=== PATIENT | male | born 1955 | race Hispanic/Latino ===

== ENCOUNTER 2017-08-21 16:19 | Emergency (ER) | payer SELFPAY ==
[2017-08-21] MEDS ORDERED: Bacitracin Zinc 1 Packet ONE (17:42)
== END 2017-08-21 18:12 | disposition home or self-care (01) ==
LOC: ERS 16:19
DX: S61.212A Laceration without foreign body of right middle finger without damage to nail, initial encounter (principal); W26.8XXA Contact with other sharp object(s), not elsewhere classified, initial encounter
CPT/HCPCS: 12002

== ENCOUNTER 2018-12-06 09:52 | Outpatient (CLI) | payer OTHER ==
--- NOTE | 2018-12-06 10:37 | RAD ---
XR Hand Rt 3 View STANDARD HISTORY: Injury to hand using the drill. COMPARISON: None. FINDINGS: There is an old healed fracture of the fifth metacarpal shaft. There is a new obliquely emil ented fracture extending through the fourth metacarpal shaft which is slightly foreshortened and minimally volarly angulated. No fracture of the third metacarpal. IMPRESSION: Acute fourth metacarpal shaft fracture.
== END 2018-12-06 09:53 | disposition home or self-care (01) ==
LOC: BICRAD 09:52
PROVIDERS: ATTEND Family Medicine
DX: M79.641 Pain in right hand (principal); S62.324A Displaced fracture of shaft of fourth metacarpal bone, right hand, initial encounter for closed fracture